=== PATIENT | female | born 1940 | race Two or more races ===

== ENCOUNTER 2016-09-24 13:43 | Emergency (ER) | payer MEDICARE, BC ==
[~2016-09-24] VITALS: Ht 157.5 cm; Wt 59.9 kg
[~2016-09-24 13:43] MED LIST: ATOR20TA PO; DIGO125T PO; DILT30TA14 PO; LOSA50TA21 PO; METO50TA3 PO; WARF2TAB57 PO; WARF4TAB41 PO
[2016-09-24 14:57] LABS: BASOPHILS % (AUTO) 0.5 % (0.0-2.0); DIFF TOTAL % 100 %; EOSINOPHILS % (AUTO) 0.6 % (0.0-6.0); HEMATOCRIT 49 % (33-45); HEMOGLOBIN 16.3 g/dL (11.5-14.8); LYMPHOCYTES # (AUTO) 1.4 /CMM (0.8-4.8); LYMPHOCYTES % (AUTO) 19.5 % (20.0-44.0); MEAN CORPUSCULAR HEMOGLOBIN 30 PG (26.0-33.0); MEAN CORPUSCULAR HGB CONC 34 g/dl (31.0-36.0); MEAN CORPUSCULAR VOLUME 89 fL (82-100); MONOCYTES # (AUTO) 0.4 /CMM (0.1-1.30); MONOCYTES % (AUTO) 5.6 % (2.0-12.0); NEUTROPHILS # (AUTO) 5.5 /CMM (1.8-8.9); NEUTROPHILS % (AUTO) 73.8 % (43.0-81.0); PLATELET COUNT (AUTO) 149 /CMM (150-450); RED BLOOD CELL COUNT(AUTO) 5.49 MIL/uL (4.0-5.2); WHITE BLOOD COUNT (AUTO) 7.3 K/uL (4.3-11.0)
[2016-09-24] MEDS ORDERED: ACETAMINOPHEN 325 MG TABLET PO ONE (15:00)
[2016-09-24] MEDS ORDERED: ACETAMINOPHEN 325 MG TABLET ONE (15:00)
[2016-09-24 15:14] LABS: INR 1.99 (0.87-1.13)
[2016-09-24 15:18] LABS: PROTHROMBIN TIME 20.9 SECS (9.5-12.7)
[2016-09-24 15:21] LABS: CALCIUM, SERUM 9.7 mg/dL (8.5-10.1); CREATININE 0.8 mg/dL (0.6-1.3); POTASSIUM 3.8 mmol/L (3.5-5.1)
[2016-09-24 15:29] LABS: TROPONIN I 0.024 ng/mL (0.00-0.056)
[2016-09-24] MEDS ORDERED: CLONIDINE HCL 0.1 MG TABLET PO ONE (16:00)
[2016-09-24] MEDS ORDERED: CLONIDINE HCL 0.1 MG TABLET ONE (16:05)
[2016-09-24 17:49] VITALS: BP 164/80
== END 2016-09-24 17:50 | disposition home or self-care (01) ==
LOC: ER 13:45
DX: R51 Headache (principal); I10 Essential (primary) hypertension; I48.91 Unspecified atrial fibrillation; E11.9 Type 2 diabetes mellitus without complications; M19.90 Unspecified osteoarthritis, unspecified site; Z86.73 Personal history of transient ischemic attack (TIA), and cerebral infarction without residual deficits
CPT/HCPCS: 36415; 70450; 80048; 84484; 85025; 85730; 93005; 99285; A4606; Z7610

== ENCOUNTER 2018-01-11 10:31 | Emergency (ER) | payer MEDICARE, BC ==
[~2018-01-11] VITALS: Ht 160 cm; Wt 63.5 kg
[~2018-01-11 10:31] MED LIST changes: +METO50TA16 PO; -METO50TA3 PO
--- NOTE | 2018-01-11 10:35 | NUR ---
PRESENTS TO ER C/O R LOWER BACK PAIN RADIATES TO R LOWER LEG X 3 DAYS. A/OX 4. BREATHING EVEN AND UNLABORED. NO SOB, NAD, VITALS STABLE. SAFETY AND COMFORT MEASURES IN PLACE. AWAITING MD ORDERS.
[2018-01-11] MEDS ORDERED: HYDROCODONE/APAP 5/325MG 1 EACH TABLET PO ONE (11:30)
[2018-01-11 11:40] LABS: BASOPHILS # (AUTO) 0.2 /CMM (0.0-0.2); BASOPHILS % (AUTO) 1.5 % (0.0-2.0); EOSINOPHILS % (AUTO) 0.1 % (0.0-6.0); HEMATOCRIT 43 % (33-45); HEMOGLOBIN 14.5 g/dL (11.5-14.8); LYMPHOCYTES % (AUTO) 9.1 % (20.0-44.0); MEAN CORPUSCULAR HGB CONC 34 g/dl (31.0-36.0); MEAN CORPUSCULAR VOLUME 89 fL (82-100); MONOCYTES # (AUTO) 0.9 /CMM (0.1-1.30); MONOCYTES % (AUTO) 7.9 % (2.0-12.0); NEUTROPHILS # (AUTO) 9.1 /CMM (1.8-8.9); NEUTROPHILS % (AUTO) 81.4 % (43.0-81.0); PLATELET COUNT (AUTO) 153 /CMM (150-450); RDW COEFFICIENT OF VARIATION 12.8 (11.5-15.0); RED BLOOD CELL COUNT(AUTO) 4.82 MIL/uL (4.0-5.2); WHITE BLOOD COUNT (AUTO) 11.2 K/uL (4.3-11.0)
[2018-01-11 11:55] LABS: ALANINE AMINOTRANSFERASE 15 U/L (12-78); ALBUMIN 3.5 g/dL (3.4-5.0); ALKALINE PHOSPHATASE 79 U/L (46-116); ASPARTATE AMINOTRANSFERASE 16 U/L (15-37); BILIRUBIN,TOTAL 1.4 mg/dL (0.2-1.0); CARBON DIOXIDE 31 mmol/L (21-32); CHLORIDE 100 mmol/L (98-107); CREATININE 0.8 mg/dL (0.6-1.3); GLUCOSE 173 mg/dL (74-106); SODIUM SERUM 135 mmol/L (136-145); TOTAL PROTEIN, SERUM 7.5 g/dL (6.4-8.2); UREA NITROGEN, BLOOD 18 mg/dL (7-18)
[2018-01-11 11:58] LABS: POTASSIUM 2.8 mmol/L (3.5-5.1)
[2018-01-11] MEDS ORDERED: HYDROCODONE/APAP 5/325MG 1 EACH TABLET ONE (12:10)
[2018-01-11] MEDS ORDERED: POTASSIUM CL. PREMIX PERIPHER. 50 ML IV SCH (12:30)
[2018-01-11] MEDS ORDERED: POTASSIUM CHLORIDE 20 MEQ TAB.PRT.SR PO ONE ×2 (12:30→12:34)
--- NOTE | 2018-01-11 12:45 | NUR ---
PATIENT/FAMILY REFUSED IV POTASSIUM, STATING THEY WILL F/U WITH DR. FISCHER. INFORMED, CLEARED FOR DISCHARGE.
--- NOTE | 2018-01-11 12:55 | NUR ---
Patient discharged to home in stable condition. Written and verbal after care instructions given. Patient verbalizes understanding of instruction.
[2018-01-11 12:56] VITALS: BP 132/74
[2018-01-11 13:39] LABS: INR 1.88 (0.85-1.15)
== END 2018-01-11 13:04 | disposition home or self-care (01) ==
LOC: ER 10:32
DX: M54.41 Lumbago with sciatica, right side (principal); E87.6 Hypokalemia; I10 Essential (primary) hypertension; I48.91 Unspecified atrial fibrillation; M51.36 Other intervertebral disc degeneration, lumbar region; Z79.01 Long term (current) use of anticoagulants; Z86.73 Personal history of transient ischemic attack (TIA), and cerebral infarction without residual deficits
CPT/HCPCS: 36415; 72100; 80053; 83735; 85025; 85610; 99285; A4606; Z7610

== ENCOUNTER 2019-01-04 11:00 | Outpatient (CLI) | payer MEDICARE, BC ==
[~2019-01-04 11:00] MED LIST changes: -LOSA50TA21 PO; +LOSA50TA39 PO
== END 2019-01-04 23:59 | disposition home or self-care (01) ==
LOC: CT 11:00
PROVIDERS: ATTEND Internal Medicine Cardiovascular Disease
DX: I67.82 Cerebral ischemia (principal); Z86.73 Personal history of transient ischemic attack (TIA), and cerebral infarction without residual deficits
CPT/HCPCS: 70450-TC

== ENCOUNTER 2019-02-10 11:50 | Emergency (ER) | payer MEDICARE, BC ==
[~2019-02-10] VITALS: Ht 160 cm; Wt 66.2 kg
--- NOTE | 2019-02-10 11:58 | NUR ---
R ELBOW AND R RIB AREA PAIN S/P GLF YESTERDAY, DENIES HEAD TRAUMA. PATIENT ATTACHED TO THE MONITOR, A/OX4, NO DISTRESS NOTED, DAUGHTER AT BEDSIDE.
--- NOTE | 2019-02-10 12:00 | NUR ---
DR. MAXWELL AT BEDSIDE.
--- NOTE | 2019-02-10 12:37 | NUR ---
PATIENT TAKEN TO CT.
--- NOTE | 2019-02-10 14:03 | NUR ---
Patient discharged to home in stable condition. Written and verbal after care instructions given. Patient verbalizes understanding of instruction.
[2019-02-10 14:04] VITALS: BP 137/87
== END 2019-02-10 14:08 | disposition home or self-care (01) ==
LOC: ER 11:51
DX: S50.01XA Contusion of right elbow, initial encounter (principal); S20.211A Contusion of right front wall of thorax, initial encounter; I48.91 Unspecified atrial fibrillation; M19.90 Unspecified osteoarthritis, unspecified site; Z86.73 Personal history of transient ischemic attack (TIA), and cerebral infarction without residual deficits; Z79.899 Other long term (current) drug therapy; Z79.01 Long term (current) use of anticoagulants; W18.39XA Other fall on same level, initial encounter; Y93.89 Activity, other specified; Y92.89 Other specified places as the place of occurrence of the external cause; Y99.8 Other external cause status
CPT/HCPCS: 36415; 70450-TC; 71100-TC; 73080-TC; 85730-TC

== ENCOUNTER 2021-12-08 11:55 | Emergency (ER) | payer MEDICARE, BC ==
[~2021-12-08] VITALS: Ht 154.9 cm; Wt 59.0 kg
--- NOTE | 2021-12-08 11:55 | NUR ---
BIB FAMILY C/O BACK PAIN RADIATING TO R HIP FROM A FALL 2 WEEKS AGO. PLACED COMFORTABLY IN BED. VITALS CHECKED. PAIN SCORE WHEN STANDING IS 8/10 BUT LYING IN BED IS 4/10. PER PATIENT PAIN INTENSIFY TPO 8-10/10 AT NIGHT TIME.
--- NOTE | 2021-12-08 13:26 | NUR ---
CT SCAN LUMBAR AREA DONE
[2021-12-08] MEDS ORDERED: METH4TAB3 PO (14:42)
[2021-12-08] MEDS ORDERED: HYDR-4209 PO (14:42)
[2021-12-08] MEDS ORDERED: HYDROCODONE/APAP 5/325MG TABLET PO ONE (15:00)
--- NOTE | 2021-12-08 15:05 | NUR ---
PATIENT REFUSED TO TAKE NARCO, ABDOMINAL BINDER APPLIED
--- NOTE | 2021-12-08 15:13 | NUR ---
Patient discharged to home in stable condition. Written and verbal after care instructions given. Patient verbalizes understanding of instruction.
[2021-12-08 15:14] VITALS: BP 113/71
== END 2021-12-08 15:15 | disposition home or self-care (01) ==
LOC: ER 11:55
DX: M54.31 Sciatica, right side (principal); S32.029S Unspecified fracture of second lumbar vertebra, sequela; M48.061 Spinal stenosis, lumbar region without neurogenic claudication; M51.26 Other intervertebral disc displacement, lumbar region; I10 Essential (primary) hypertension; I48.91 Unspecified atrial fibrillation; M19.90 Unspecified osteoarthritis, unspecified site; Z86.73 Personal history of transient ischemic attack (TIA), and cerebral infarction without residual deficits; Z79.899 Other long term (current) drug therapy; W18.30XS Fall on same level, unspecified, sequela
CPT/HCPCS: 72131-TC

== ENCOUNTER 2022-01-08 10:12 | Emergency (ER) | payer MEDICARE, BC ==
[~2022-01-08] VITALS: Ht 157.5 cm; Wt 63.5 kg
[~2022-01-08 10:12] MED LIST changes: +HYDR-4209 PO; +METH4TAB3 PO
--- NOTE | 2022-01-08 10:12 | NUR ---
BIB FAMILY C/O COUGH AND CONGESTION, WAS DIAGNOSED WITH COVID 17 DAYS AGO COUGH AND CONGESTION HAS NOT BEEN RELIEVED. VITALS ARE WITHIN NORMAL LIMITS. NO RESP DISTRESS NOTED.
--- NOTE | 2022-01-08 10:15 | NUR ---
BIB FAMILY C/O COUGH AND CONGESTION, WAS DIAGNOSED WITH COVID 17 DAYS AGO WITH COUGH AND CONGESTION HAS NOT BEEN RELIEVED. PLACED COMFORTABLY IN BED. VITALS CHECKED. FAMILY AT BEDSIDE.
--- NOTE | 2022-01-08 12:05 | NUR ---
Patient discharged to home in stable condition. Written and verbal after care instructions given. Patient verbalizes understanding of instruction.
[2022-01-08 12:07] VITALS: BP 148/78
== END 2022-01-08 12:07 | disposition home or self-care (01) ==
LOC: ER 10:15
DX: R05.9 Cough, unspecified (principal); I10 Essential (primary) hypertension; I48.91 Unspecified atrial fibrillation; M19.90 Unspecified osteoarthritis, unspecified site; Z79.899 Other long term (current) drug therapy
CPT/HCPCS: 71045-TC

== ENCOUNTER 2023-01-31 10:02 | Emergency (ER) | payer MEDICARE, BC ==
[~2023-01-31] VITALS: Ht 157.5 cm; Wt 67.1 kg
--- NOTE | 2023-01-31 10:15 | NUR ---
bib family c/o L sided neck area pain since waking up at around 0700. no trauma endorsed.
--- NOTE | 2023-01-31 10:25 | NUR ---
PT TAKEN TO CT [facility]IA [facility]
[2023-01-31] MEDS ORDERED: ACETAMINOPHEN ES 500 MG TABLET ONE (10:26)
[2023-01-31] MEDS ORDERED: ACETAMINOPHEN ES 500 MG TABLET PO ONE (10:30)
--- NOTE | 2023-01-31 10:36 | NUR ---
PT RETURNEDE FROM CT [facility]IA [facility]
[2023-01-31] MEDS ORDERED: IBUP-1953 PO (11:38)
[2023-01-31] MEDS ORDERED: CAPS1ADH5 TP (11:38)
[2023-01-31 11:45] VITALS: BP 165/85
--- NOTE | 2023-01-31 11:45 | NUR ---
Patient discharged to home in stable condition. Written and verbal after care instructions given. Patient verbalizes understanding of instruction.
== END 2023-01-31 11:46 | disposition home or self-care (01) ==
LOC: ER 10:07
DX: M54.2 Cervicalgia (principal); I10 Essential (primary) hypertension; I48.91 Unspecified atrial fibrillation; Z79.899 Other long term (current) drug therapy; Z86.73 Personal history of transient ischemic attack (TIA), and cerebral infarction without residual deficits
CPT/HCPCS: 72125-TC

== ENCOUNTER 2024-04-23 11:04 | Emergency (ER) | payer MEDICARE, BC ==
[~2024-04-23] VITALS: Ht 154.9 cm; Wt 59.0 kg
[~2024-04-23 11:04] MED LIST changes: +CAPS1ADH5 TP; +IBUP-1953 PO
[2024-04-23] MEDS ORDERED: PHENYLEPHRINE 0.5% NASAL SPRAY 15 ML BOTTLE NS ONE (11:56)
[2024-04-23] MEDS ORDERED: TRANEXAMIC ACID 1,000 MG/10 ML VIAL ONE (11:56)
[2024-04-23] MEDS: PHENYLEPHRINE HCL NASAL SPRAY 15 ML BOTTLE NS ONE (12:11)
[2024-04-23] MEDS: TRANEXAMIC ACID 1,000 MG/10 ML VIAL NS ONE (12:13)
[2024-04-23 12:20] LABS: CALCIUM, SERUM 8.6 mg/dL (8.5-10.1); CARBON DIOXIDE 30 mmol/L (21-32); CHLORIDE 108 mmol/L (98-107); CREATININE 0.6 mg/dL (0.6-1.3); GLUCOSE 186 mg/dL (74-106); POTASSIUM 3.3 mmol/L (3.5-5.1); SODIUM SERUM 141 mmol/L (136-145); UREA NITROGEN, BLOOD 25 mg/dL (7-18)
[2024-04-23 12:34] LABS: INR 1.22 (0.91-1.10); PARTIAL THROMBOPLASTIN TIME 28.4 SEC (24.3-34.3); PROTHROMBIN TIME 12.8 SECS (9.2-11.1)
[2024-04-23 12:44] LABS: BASOPHILS % (AUTO) 0.3 % (0.0-2.0); EOSINOPHILS % (AUTO) 0.7 % (0.0-6.0); HEMATOCRIT 32 % (33-45); HEMOGLOBIN 10.5 g/dL (11.5-14.8); LYMPHOCYTES # (AUTO) 0.6 K/uL (0.8-4.8); LYMPHOCYTES % (AUTO) 8.9 % (20.0-44.0); MEAN CORPUSCULAR HEMOGLOBIN 28 PG (26.0-33.0); MEAN CORPUSCULAR HGB CONC 33 g/dl (31.0-36.0); MEAN CORPUSCULAR VOLUME 85 fL (82-100); MONOCYTES # (AUTO) 0.4 K/uL (0.1-1.30); MONOCYTES % (AUTO) 6.9 % (2.0-12.0); NEUTROPHILS # (AUTO) 5.3 K/uL (1.8-8.9); NEUTROPHILS % (AUTO) 83.2 % (43.0-81.0); PLATELET COUNT (AUTO) 140 K/uL (150-450); RED BLOOD CELL COUNT(AUTO) 3.81 MIL/uL (4.0-5.2); RED CELL DISTRIBUTION WIDTH 15.6 % (11.5-15.0); WHITE BLOOD COUNT (AUTO) 6.4 K/uL (4.3-11.0)
[2024-04-23 13:40] VITALS: BP 130/57; TEMP 98; O2SAT 98
== END 2024-04-23 13:41 | disposition home or self-care (01) ==
LOC: ER 11:06
DX: R04.0 Epistaxis (principal); T45.525A Adverse effect of antithrombotic drugs, initial encounter; I10 Essential (primary) hypertension; E11.9 Type 2 diabetes mellitus without complications; M19.90 Unspecified osteoarthritis, unspecified site; Y92.89 Other specified places as the place of occurrence of the external cause
CPT/HCPCS: 99283; 85025; 80048; 36415; 85730; 86850; A6403

== ENCOUNTER 2024-10-09 22:40 | Inpatient (IN) | payer MEDICARE, BC ==
[~2024-10-09] VITALS: Ht 152.4 cm; Wt 54.9 kg
[2024-10-09] MEDS: POTASSIUM CHLORIDE 20 MEQ TAB.PRT.SR PO ONE (23:30)
[2024-10-09] MEDS: POTASSIUM CL. PREMIX PERIPHER. 50 ML IV SCH (23:30)
[2024-10-09] MEDS: METOPROLOL SUCCINATE 50 MG TAB.SR.24H PO SCH (23:30)
[2024-10-09] MEDS ORDERED: METOPROLOL TARTRATE INJ 5 MG/5 ML AMPUL ONE (23:38)
[2024-10-09] MEDS ORDERED: POTASSIUM CL. PREMIX PERIPHER. 50 ML ONE (23:38)
[2024-10-09] MEDS ORDERED: METOPROLOL TARTRATE 50 MG TABLET ONE (23:38)
[2024-10-09] MEDS ORDERED: POTASSIUM CHLORIDE 20 MEQ TAB.PRT.SR PO ONE (23:38)
[2024-10-09 23:40] LABS: BASOPHILS # (AUTO) 0.1 K/uL (0.0-0.2); BASOPHILS % (AUTO) 0.8 % (0.0-2.0); EOSINOPHILS # (AUTO) 0.1 K/uL (0.0-0.7); EOSINOPHILS % (AUTO) 1.4 % (0.0-6.0); HEMATOCRIT 37 % (33-45); LYMPHOCYTES # (AUTO) 1.2 K/uL (0.8-4.8); LYMPHOCYTES % (AUTO) 18.9 % (20.0-44.0); MEAN CORPUSCULAR HEMOGLOBIN 29 PG (26.0-33.0); MEAN CORPUSCULAR HGB CONC 32 g/dl (31.0-36.0); MEAN CORPUSCULAR VOLUME 91 fL (82-100); MONOCYTES # (AUTO) 0.6 K/uL (0.1-1.30); MONOCYTES % (AUTO) 10.1 % (2.0-12.0); NEUTROPHILS # (AUTO) 4.4 K/uL (1.8-8.9); NEUTROPHILS % (AUTO) 68.8 % (43.0-81.0); PLATELET COUNT (AUTO) 155 K/uL (150-450); RED BLOOD CELL COUNT(AUTO) 4.09 MIL/uL (4.0-5.2); RED CELL DISTRIBUTION WIDTH 26.4 % (11.5-15.0); WHITE BLOOD COUNT (AUTO) 6.4 K/uL (4.3-11.0)
[2024-10-09 23:50] LABS: CALCIUM, SERUM 9.2 mg/dL (8.5-10.1); CARBON DIOXIDE 34 mmol/L (21-32); CHLORIDE 101 mmol/L (98-107); CREATININE 0.9 mg/dL (0.6-1.3); GLUCOSE 149 mg/dL (74-106); SODIUM SERUM 142 mmol/L (136-145); UREA NITROGEN, BLOOD 18 mg/dL (7-18)
[2024-10-09] MEDS: METOPROLOL TARTRATE INJ 5 MG/5 ML AMPUL IV ONE (23:54)
[2024-10-09 23:56] LABS: POTASSIUM 2.8 mmol/L (3.5-5.1)
[2024-10-10 00:04] LABS: BILIRUBIN,DIRECT 0.3 mg/dL (0.0-0.2); BILIRUBIN,TOTAL 0.7 mg/dL (0.2-1.0)
[2024-10-10 00:05] LABS: ALANINE AMINOTRANSFERASE 19 U/L (12-78); ALKALINE PHOSPHATASE 97 U/L (46-116); ASPARTATE AMINOTRANSFERASE 20 U/L (15-37); NT-PRO BNP 10846 pg/mL (0-125); TOTAL PROTEIN, SERUM 7.3 g/dL (6.4-8.2)
[2024-10-10 00:21] LABS: INR 1.41 (0.91-1.10); PARTIAL THROMBOPLASTIN TIME 32.5 SEC (24.3-34.3); PROTHROMBIN TIME 14.6 SECS (9.2-11.1)
[2024-10-10] MEDS ORDERED: ENOXAPARIN SODIUM 60 MG/0.6 ML DISP.SYRIN SQ ONE (00:36)
[2024-10-10] MEDS ORDERED: POTASSIUM CL. PREMIX PERIPHER. 150 ML ONE (00:36)
[2024-10-10] MEDS: ENOXAPARIN SODIUM 60 MG/0.6 ML DISP.SYRIN SQ ONE (00:46)
[2024-10-10] MEDS ORDERED: Z GUARD REMEDY 4 OZ OINT TP PRN (01:30)
[2024-10-10] MEDS ORDERED: MAG HYDROX/AL HYDROX/SIMETH 30 ML UDC PO PRN (01:30)
[2024-10-10] MEDS ORDERED: MAGNESIUM HYDROXIDE 30 ML UDC PO PRN (01:30)
[2024-10-10] MEDS ORDERED: ACETAMINOPHEN 325 MG TABLET PO PRN (01:30)
[2024-10-10] MEDS ORDERED: LEVOFLOXACIN 750 MG /D5W 150ML PIGGYBACK IV ONE (01:30)
[2024-10-10] MEDS: CEFTRIAXONE 1GM BAG (ER ONLY) 1 GM/50 ML PIGGYBACK IV ONE (01:30)
[2024-10-10] MEDS ORDERED: ZOLPIDEM TARTRATE 5 MG TABLET PO PRN (01:30)
[2024-10-10] MEDS ORDERED: NITROGLYCERIN 0.4 MG/TAB BOTTLE SL PRN (01:30)
[2024-10-10] MEDS: CEFTRIAXONE 1 G in IV D5W 50 ML IV SCH (01:30)
[2024-10-10] MEDS ORDERED: HYDROCODONE/APAP 5/325MG TABLET PO PRN (01:30)
[2024-10-10] MEDS: ENOXAPARIN SODIUM 60 MG/0.6 ML DISP.SYRIN SQ SCH ×2 (01:52→07:55)
[2024-10-10] MEDS ORDERED: AZITHROMYCIN 500 MG VIAL ONE (03:17)
[2024-10-10 04:00] VITALS: BP 122/96; TEMP 98.2; O2SAT 95
[2024-10-10] MEDS: AZITHROMYCIN 500 MG in IV D5W 250 ML IV SCH (04:18)
[2024-10-10] MEDS: ONDANSETRON HCL/PF 4 MG/2 ML VIAL IVP PRN (05:43)
[2024-10-10] MEDS ORDERED: MORPHINE SULFATE INJ 2 MG/ML DISP.SYRIN IV PRN (06:30)
[2024-10-10] MEDS: PANTOPRAZOLE 40 MG TABLET.DR PO SCH (07:55)
[2024-10-10 07:59] LABS: CALCIUM, SERUM 9.2 mg/dL (8.5-10.1); CREATININE 0.9 mg/dL (0.6-1.3); MAGNESIUM 1.5 mg/dL (1.8-2.4)
[2024-10-10 08:00] VITALS: BP 114/88; TEMP 97.5; O2SAT 95
[2024-10-10] MEDS: DIGOXIN 0.125 MG TABLET PO SCH (08:59)
[2024-10-10] MEDS: LOSARTAN POTASSIUM 50 MG TABLET PO SCH (08:59)
[2024-10-10] MEDS ORDERED: METOPROLOL TARTRATE 50 MG TABLET PO SCH (09:00)
[2024-10-10] MEDS: METOPROLOL TARTRATE 50 MG TABLET PO SCH (09:01)
[2024-10-10 12:00] VITALS: BP 118/79; TEMP 97.7; O2SAT 95
[2024-10-10] MEDS: MAGNESIUM OXIDE 400 MG TABLET PO SCH (12:22)
[2024-10-10] MEDS ORDERED: AMOX-427 PO (13:48)
[2024-10-10] MEDS ORDERED: DIGO125T PO (13:48)
[2024-10-10] MEDS ORDERED: LOSA50TA39 PO (13:48)
[2024-10-10] MEDS ORDERED: APIX5TAB PO (13:48)
[2024-10-10] MEDS ORDERED: METO200T49 PO (14:01)
[2024-10-10] MEDS ORDERED: CLOP75TA15 PO (14:01)
[2024-10-10] MEDS ORDERED: SPIR25TA6 PO (14:01)
[2024-10-10] MEDS ORDERED: VALS160T2 PO (14:01)
[2024-10-10] MEDS ORDERED: POTA10CA43 PO (14:01)
[2024-10-10] MEDS ORDERED: APIXABAN 5 MG TABLET PO SCH (17:00)
[2024-10-10] MEDS ORDERED: ENOXAPARIN SODIUM 60 MG/0.6 ML DISP.SYRIN SQ SCH (21:00)
[2024-10-10] MEDS ORDERED: AZITHROMYCIN 500 MG in IV D5W 250 ML IV SCH (23:00)
[2024-10-11] MEDS ORDERED: CEFTRIAXONE 1 G in IV D5W 50 ML IV SCH (01:00)
== END 2024-10-10 15:16 | disposition home or self-care (01) | DRG 280 ==
LOC: ER 22:40 → TELE1 10-10 01:46
PROVIDERS: ADMIT Nurse Practitioner Acute Care; ATTEND Nurse Practitioner Acute Care
DX: I48.91 Unspecified atrial fibrillation (principal); J15.69 Pneumonia due to other Gram-negative bacteria; I21.A1 Myocardial infarction type 2; E44.0 Moderate protein-calorie malnutrition; R64 Cachexia; E87.6 Hypokalemia; I11.0 Hypertensive heart disease with heart failure; I50.9 Heart failure, unspecified; I25.10 Atherosclerotic heart disease of native coronary artery without angina pectoris; Z86.73 Personal history of transient ischemic attack (TIA), and cerebral infarction without residual deficits; I25.2 Old myocardial infarction; E78.5 Hyperlipidemia, unspecified; E11.9 Type 2 diabetes mellitus without complications; Z95.5 Presence of coronary angioplasty implant and graft; Z98.890 Other specified postprocedural states; Z79.01 Long term (current) use of anticoagulants; Z79.899 Other long term (current) drug therapy; J40 Bronchitis, not specified as acute or chronic; S62.101A Fracture of unspecified carpal bone, right wrist, initial encounter for closed fracture; X58.XXXA Exposure to other specified factors, initial encounter; Y92.9 Unspecified place or not applicable; Z86.16 Personal history of COVID-19; Z79.02 Long term (current) use of antithrombotics/antiplatelets; Z86.19 Personal history of other infectious and parasitic diseases
CPT/HCPCS: 36415; 71045-TC; 80048-TC; 80076-TC; 80162-TC; 82962-TC; 83735-TC; 83880; 84484-TC; 85025-TC; 85730-TC; 93307-TC; A4223; G0378; J0456; J0696; J1650; J1956; J2405; J3480; J3490; J7040; J7050; J7060

== ENCOUNTER 2025-01-11 12:34 | Emergency (ER) | payer MEDICARE, BC ==
[~2025-01-11] VITALS: Ht 152.4 cm; Wt 57.2 kg
[~2025-01-11 12:34] MED LIST changes: +AMOX-427 PO; +APIX5TAB PO; -CAPS1ADH5 TP; +CLOP75TA15 PO; -DILT30TA14 PO; -HYDR-4209 PO; -IBUP-1953 PO; -METH4TAB3 PO; +METO200T49 PO; -METO50TA16 PO; +POTA10CA43 PO; +SPIR25TA6 PO; +VALS160T2 PO; -WARF2TAB57 PO; -WARF4TAB41 PO
[2025-01-11 12:50] VITALS: TEMP 97.9
[2025-01-11 13:23] LABS: BASOPHILS % (AUTO) 0.5 % (0.0-2.0); EOSINOPHILS # (AUTO) 0.1 K/uL (0.0-0.7); EOSINOPHILS % (AUTO) 1.2 % (0.0-6.0); HEMATOCRIT 38 % (33-45); HEMOGLOBIN 12.2 g/dL (11.5-14.8); LYMPHOCYTES # (AUTO) 0.6 K/uL (0.8-4.8); LYMPHOCYTES % (AUTO) 12.7 % (20.0-44.0); MEAN CORPUSCULAR HEMOGLOBIN 27 PG (26.0-33.0); MEAN CORPUSCULAR HGB CONC 32 g/dl (31.0-36.0); MEAN CORPUSCULAR VOLUME 83 fL (82-100); MONOCYTES # (AUTO) 0.7 K/uL (0.1-1.30); MONOCYTES % (AUTO) 14.4 % (2.0-12.0); NEUTROPHILS # (AUTO) 3.3 K/uL (1.8-8.9); NEUTROPHILS % (AUTO) 71.2 % (43.0-81.0); PLATELET COUNT (AUTO) 174 K/uL (150-450); RED BLOOD CELL COUNT(AUTO) 4.58 MIL/uL (4.0-5.2); RED CELL DISTRIBUTION WIDTH 17.1 % (11.5-15.0); WHITE BLOOD COUNT (AUTO) 4.6 K/uL (4.3-11.0)
[2025-01-11 13:36] LABS: CALCIUM, SERUM 9.1 mg/dL (8.5-10.1); CARBON DIOXIDE 28 mmol/L (21-32); CHLORIDE 104 mmol/L (98-107); CREATININE 0.9 mg/dL (0.6-1.3); GLUCOSE 162 mg/dL (74-106); POTASSIUM 3.8 mmol/L (3.5-5.1); SODIUM SERUM 137 mmol/L (136-145); UREA NITROGEN, BLOOD 26 mg/dL (7-18)
[2025-01-11 13:47] LABS: ALANINE AMINOTRANSFERASE 15 U/L (12-78); ALBUMIN 3.1 g/dL (3.4-5.0); ALKALINE PHOSPHATASE 88 U/L (46-116); ASPARTATE AMINOTRANSFERASE 18 U/L (15-37); BILIRUBIN,DIRECT 0.1 mg/dL (0.0-0.2); BILIRUBIN,TOTAL 0.4 mg/dL (0.2-1.0); TOTAL PROTEIN, SERUM 7.4 g/dL (6.4-8.2)
[2025-01-11] MEDS ORDERED: GUAIFENESIN/D-METHORPHAN HB 5 ML UDC ONE (15:02)
[2025-01-11] MEDS: GUAIFENESIN/D-METHORPHAN HB 5 ML UDC PO ONE (15:05)
[2025-01-11] MEDS ORDERED: GUAI-1105 PO (17:56)
[2025-01-11 18:25] VITALS: BP 135/75; O2SAT 96
== END 2025-01-11 18:05 | disposition home or self-care (01) ==
LOC: ER 12:36
DX: R05.9 Cough, unspecified (principal); R09.81 Nasal congestion; E78.5 Hyperlipidemia, unspecified; I10 Essential (primary) hypertension; R07.9 Chest pain, unspecified; I48.91 Unspecified atrial fibrillation; I70.0 Atherosclerosis of aorta; M19.90 Unspecified osteoarthritis, unspecified site; Z79.01 Long term (current) use of anticoagulants; Z79.02 Long term (current) use of antithrombotics/antiplatelets; Z79.899 Other long term (current) drug therapy; Z86.73 Personal history of transient ischemic attack (TIA), and cerebral infarction without residual deficits; Z87.01 Personal history of pneumonia (recurrent); Z95.5 Presence of coronary angioplasty implant and graft; Z20.822 Contact with and (suspected) exposure to COVID-19
CPT/HCPCS: 36415; 71045-TC; 71046; 80048-TC; 80076-TC; 85025-TC